=== PATIENT | male | born 1980 | race Hispanic/Latino ===

== ENCOUNTER 2021-11-15 08:34 | Day surgery (SDC) | payer SELFPAY ==
[2021-11-15] VITALS (8 sets, daily range): BP systolic 113–141; BP diastolic 68–92; PULSE 74–87; RESP 16; TEMP 36.3–37.5; O2SAT 92–98; BMI 40.1
[2021-11-15] MEDS: Cefazolin 2 GM in 0.9% Normal Saline 100 ML IV (11:08)
--- NOTE | 2021-11-15 11:34 | RAD_ITS ---
STUDY: X-RAY - RIGHT TIBIA AND FIBULA REASON FOR EXAM: Male, 40 years old. Intraoperative digital documentation of hardware removal. TECHNIQUE: 8 intraoperative digital documentation view(s) of the tibia and fibula were obtained. COMPARISON: None. FINDINGS: 8 intraoperative digital documentation show intramedullary removal. RAD/Tibia & Fibula 2 Views IMPRESSION: Intraoperative digital documentation views as described. Electronically Signed: Toño Hawkins, at 13:19 EDT ,
[2021-11-15] MEDS: Acetaminophen 500 MG Tablet 1000 MG PO (12:51)
--- NOTE | 2021-11-15 13:54 | DCINST_ITS ---
Discharge Instructions Follow Up Care Test Results: Test results from this visit will be discussed in further detail at your follow- up appointment, if applicable. Discharge Plan Admission Primary Reason for Your Visit: Right tibial nail extraction Attending Provider: Antony Wood Primary Care Provider: Care Physician,Diana Primary Instructions Additional Instructions / Restrictions: Follow preprinted instructions from your surgeons office. Discharge Orders/Prescriptions Prescriptions: New oxycodone 5 mg tablet 5 mg PO Q4H PRN (Reason: pain) 7 Days Qty: 42 0RF Referrals / Follow Up: Antony Wood DO [Med Staff - Active Staff] - Within 2 Weeks Care Physician,No Primary [Primary Care Provider] - Disposition Disposition (needs filled in before D/C Order can be placed): Home, Self Care
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
== END 2021-11-15 15:21 | disposition home or self-care (01) ==
LOC: SDC 08:43 → AC 08:43
PROVIDERS: Referring Provider Student in an Organized Health Care Education/Training Program; Visit Provider Student in an Organized Health Care Education/Training Program
PROC: (CPT 20680; principal; 2021-11-15 10:00)
DX: T84.84XA Pain due to internal orthopedic prosthetic devices, implants and grafts, initial encounter (principal); M79.661 Pain in right lower leg; S82.42 Transverse fracture of shaft of fibula; E66.8 Other obesity; Z71.3 Dietary counseling and surveillance; Z68.37 Body mass index [BMI] 37.0-37.9, adult; H91.90 Unspecified hearing loss, unspecified ear; Z78.9 Other specified health status
CPT/HCPCS: 20680; 73590; 76000; J7120